=== PATIENT | female | born 1990 | race Hispanic/Latino ===

== ENCOUNTER 2018-08-18 14:23 | Outpatient (CLI) | payer MEDICAID ==
[2018-08-18 15:53] LABS: Hematocrit 30.8 % (30.3-42.9); Hemoglobin 10.3 gm/dl (10.1-14.3); Mean Corpuscular HGB Conc 33 % (30-34); Mean Corpuscular Volume 85 fl (79-97); Platelet Count 372 K/mm3 (140-440); Red Blood Count 3.61 M/mm3 (3.65-5.03); Red Cell Distribution Width 13.7 % (13.2-15.2)
[2018-08-18 16:10] LABS: Bacteria,Urine 1+ /HPF (Negative); Bilirubin,Urine NEG (Negative); Blood,Urine NEG (Negative); Color,Urine Yellow (Yellow); Mucus,Urine FEW /HPF; Urobilinogen,Urine < 2.0 mg/dL (<2.0)
[2018-08-18 17:07] LABS: Alanine Aminotransferase 6 units/L (7-56); Uric Acid 3.7 mg/dL (3.5-7.6)
[2018-08-18 17:15] VITALS: BP 108/73
== END 2018-08-18 17:35 | disposition home or self-care (01) ==
LOC: TRG 14:23
PROVIDERS: ATTEND Obstetrics & Gynecology
DX: O47.03 False labor before 37 completed weeks of gestation, third trimester (principal); O13.3 Gestational [pregnancy-induced] hypertension without significant proteinuria, third trimester; Z3A.36 36 weeks gestation of pregnancy
CPT/HCPCS: 36415; 59025; 81001; 82565; 83615; 84450; 84460; 84550; 85027

== ENCOUNTER 2018-08-22 18:05 | Outpatient (CLI) | payer MEDICAID ==
[2018-08-22] MEDS ORDERED: LACTATED RINGERS 500 ML IV ONE (18:29)
[2018-08-22 19:10] LABS: Hematocrit 33.3 % (30.3-42.9); Hemoglobin 11.2 gm/dl (10.1-14.3); Mean Corpuscular HGB Conc 34 % (30-34); Mean Corpuscular Volume 84 fl (79-97); Platelet Count 424 K/mm3 (140-440); Red Blood Count 3.95 M/mm3 (3.65-5.03); Red Cell Distribution Width 13.8 % (13.2-15.2)
[2018-08-22 19:23] LABS: Bacteria,Urine 1+ /HPF (Negative); Bilirubin,Urine NEG (Negative); Blood,Urine NEG (Negative); Color,Urine Yellow (Yellow); Mucus,Urine FEW /HPF; Protein,Urine <15 mg/dL mg/dL (Negative); Urobilinogen,Urine < 2.0 mg/dL (<2.0)
[2018-08-22 19:36] LABS: Alanine Aminotransferase 6 units/L (7-56); Uric Acid 4.2 mg/dL (3.5-7.6)
[2018-08-22 20:10] VITALS: BP 108/70
== END 2018-08-22 20:24 | disposition home or self-care (01) ==
LOC: TRG 18:05
PROVIDERS: ATTEND Obstetrics & Gynecology
DX: O47.03 False labor before 37 completed weeks of gestation, third trimester (principal); O13.3 Gestational [pregnancy-induced] hypertension without significant proteinuria, third trimester; Z3A.37 37 weeks gestation of pregnancy
CPT/HCPCS: 36415; 81001; 82565; 83615; 84450; 84460; 84550; 85027

== ENCOUNTER 2018-09-04 05:28 | Inpatient (IN) | payer MEDICAID ==
--- NOTE | 2018-09-03 23:38 | History and Physical Report ---
History of Present Illness Date of examination: 09/04/18 History of present illness: Patient admitted for repeat section. Patient informed the risks of the surgery include bleeding possibly bleeding heavy enough to require blood transfusion, infection possible damage to bowel bladder ureter. Patient understands that due to her previous surgery she is an increased risks of adjacent organ damage. Patient's questions answered. Patient understands and desires to proceed. Menstrual History Regularity: regular Menses every: 28 days Duration: 5 LMP: 12/04/2017 LMP reliability: definite LMP character: heavier test type: urine test Date: 03/24/2018 BC at conception: none EDC Calculations LMP: 09/10/2018 EDC Confirmation: 09/10/2018 Gestational Age: 15 5/7 weeks Past History : 2 Para: 1 Mult. Births: 0 Prev : 1 Aborta: 0 Elect. Ab: 0 Spont. Ab: 0 Ectopics: 0 Past Medical History: IBS ? thyroid dysfunction - no meds Past Medical History Abnormal PAP: positive, 2007 Family Hx: father - DM Social Hx: Patient is single No etoh/drugs/smoking Smoking History: Patient has never smoked. Infection History Hx of STD: none HIV Risk Eval: no Hepatitis B Risk Eval: low risk Personal hx. of genital herpes: no Partner hx. of genital herpes: no Rash, Viral, or Febrile illness since last LMP? no Varicella/Chicken Pox Status: Previous Disease Genetic History Congenital Heart Defect: Mom: no Dad: no Ascencion Disease: Mom: no Dad: no Thalassemia Mom: no Dad: no Neural Tube Defect Mom: no Dad: no Down's Syndrome Mom: no Dad: no Mckinley-Sachs Mom: no Dad: no Sickle Cell Disease/Trait Mom: no Dad: no Hemophilia Mom: no Dad: no Muscular Dystrophy Mom: no Dad: no Cystic Fibrosis Mom: no Dad: no Trung Chorea Mom: no Dad: no Mental Retardation Mom: no Dad: no Fragile X Mom: no Dad: no Other Genetic/Chromosomal Disorder Mom: no Dad: no Child w/other defect Mom: no Dad: no Enviromental Exposures Xray Exposure: no Medication, drug, or alcohol use since LMP: no Chemical/Other Exposure: no Exposure to Cat Liter: no Hx of Parvovirus (Fifth Disease): no Occupational Exposure to Children: none Current Allergies (reviewed today): FLAGYL (Critical) Past History Social history: other (See HPI) - Obstetrical History Expected Date of Delivery: 09/10/18 Actual Gestation: 39 Week(s) 1 Day(s) : 2 Para: 1 Hx # Term Pregnancies: 1 Number of Pregnancies: 0 Spontaneous Abortions: 0 Induced : 0 Number of Living Children: 1 Medications and Allergies Allergies Allergy/AdvReac Type Severity Reaction Status Date / Time No Known Allergies Allergy Verified 08/22/18 18:27 Home Medications Medication Instructions Recorded Confirmed Last Taken Type Aspirin [Lo-Dose Aspirin EC] 81 mg PO DAILY 08/18/18 09/04/18 09/03/18 History - Physical Exam Breasts: Positive: deferred Cardiovascular: Regular rate Results Result Diagrams: 09/04/18 05:55 All other labs normal. Assessment and Plan - Patient Problems (1) 39 weeks gestation of Current Visit: No Status: Acute (2) Maternal care for scar from previous delivery Current Visit: No Status: Acute Qualifiers: Previous delivery type: low transverse Qualified Code(s): O34.211 - Maternal care for low transverse scar from previous delivery Plan to address problem: Patient informed the risks of the surgery include bleeding possibly bleeding heavy enough to require blood transfusion, infection possible damage to bowel bladder ureter. All questions answered. Patient agrees to proceed (3) Sterilization Current Visit: No Status: Acute Plan to address problem: Patient desires permanent sterilization. She declined temporary contraceptives. She understands the risks of the surgery include bleeding infection possible damage to bowel bladder or ureters. She understands that this surgery would ma ke her permanently sterile. She also understands the approximate 1% failure rate. The patient understands all the above and desires to proceed.
[2018-09-04] MEDS ORDERED: LACTATED RINGERS 2,000 ML ONE (05:50)
[2018-09-04] MEDS: LACTATED RINGERS 1,000 ML IV SCH ×2 (06:00→06:40)
[2018-09-04] MEDS ORDERED: REGLAN IV ONE (06:13)
[2018-09-04] MEDS ORDERED: PEPCID IV ONE (06:13)
[2018-09-04] MEDS ORDERED: BICITRA PO ONE (06:13)
[2018-09-04 06:39] LABS: Eosinophils % (Auto) 0.7 % (0.0-4.3); Hemoglobin 11.4 gm/dl (10.1-14.3); Lymphocytes % (Auto) 17.4 % (13.4-35.0); Mean Corpuscular HGB Conc 33 % (30-34); Mean Corpuscular Volume 84 fl (79-97); Monocytes % (Auto) 9.3 % (0.0-7.3); Platelet Count 411 K/mm3 (140-440); Red Blood Count 4.03 M/mm3 (3.65-5.03)
[2018-09-04 06:40] LABS: Basophils % (Auto) 0.4 % (0.0-1.8); Eosinophils # (Auto) 0.1 K/mm3 (0.0-0.4)
[2018-09-04] MEDS ORDERED: ANCEF/STERILE WATER 2 GM/20 ML 2 GM/20 ML SYRINGE IV NR (07:00)
[2018-09-04] MEDS ORDERED: PITOCin/NS 20 UNIT/1000ML DRIP 20 UNITS/1,000 ML BAG IV SCH ×2 (07:00→11:59)
--- NOTE | 2018-09-04 07:19 | Anesthesia Day of Surgery ---
Anesthesia Day of Surgery - Day of Surgery Patient Examined: Yes Patient H&P Reviewed: Yes Patient is NPO: Yes Beta Blockers: No Cardiac Clearance: No Pulmonary Clearance: No Justin's Test: N/A
--- NOTE | 2018-09-04 07:20 | Anesthesia Consultation ---
Anesthesia Consult and Med Hx - Airway Anesthetic Teeth Evaluation: Good ROM Head & Neck: Adequate Mental/Hyoid Distance: Adequate Mallampati Class: Class I Intubation Access Assessment: Good - Pulmonary Exam CTA: Yes - Cardiac Exam Cardiac Exam: RRR - Pre-Operative Health Status ASA Pre-Surgery Classification: ASA2 Proposed Anesthetic Plan: Spinal - Pulmonary Hx Smoking: No Hx Asthma: No COPD: No Hx Pneumonia: No - Cardiovascular System Hx Hypertension: No - Central Nervous System Hx Seizures: No Hx Psychiatric Problems: No - Endocrine Hx Renal Disease: No Hx End Stage Renal Disease: No Hx Hypothyroidism: No Hx Hyperthyroidism: No - Hematic Hx Anemia: No Hx Sickle Cell Disease: No - Other Systems Hx Alcohol Use: No
[2018-09-04] MEDS ORDERED: SODIUM CHLORIDE FLUSH SYRINGE 10 ML IV PRN (08:00)
[2018-09-04] MEDS ORDERED: PHENERGAN PO PRN (08:00)
[2018-09-04] MEDS ORDERED: DILAUDID IV PRN (08:00)
[2018-09-04] MEDS ORDERED: NARCAN 0.4 MG/1 ML IV PRN ×2 (08:00→11:59)
[2018-09-04] MEDS ORDERED: PHENERGAN PR PRN (08:00)
[2018-09-04] MEDS ORDERED: ZOFRAN IV PRN (08:00)
[2018-09-04] MEDS ORDERED: ZOFRAN ONE (08:02)
[2018-09-04] MEDS ORDERED: NEO SYNEPHRINE/NS Syringe(OR USE) IV ONE (08:02)
[2018-09-04] MEDS ORDERED: ASTRAMORPH PF 10MG/10ML ONE (08:02)
[2018-09-04] MEDS ORDERED: ANCEF/STERILE WATER 2 GM/20 ML IV ONE (08:15)
[2018-09-04] MEDS ORDERED: LACTATED RINGERS 1,000 ML ONE (08:19)
[2018-09-04] MEDS ORDERED: WATER FOR IRRIG STERILE IR ONE (08:32)
[2018-09-04] MEDS ORDERED: NACL 0.9% IR ONE (08:32)
[2018-09-04] MEDS ORDERED: TORADOL ONE (09:00)
--- NOTE | 2018-09-04 09:16 | Operative Report ---
Operative Report Operative Report: Date of procedure: 09/04/2018 Pre-operative diagnosis: Intrauterine at 39 weeks with previous constantine keven section desiring permanent sterilization Post-operative diagnosis: Same Procedure name(s): Repeat low transverse section with bilateral tubal ligation modified Erickson type Surgeon: Des Pop MD Bar Tender: Iveth Hurt assistant golf professional Anesthesia: Spinal EBL: 550 mL Complications: None Findings: Patient with normal uterus tubes and ovaries bilaterally. Female infant 8 lbs. 3 oz. 9 at 1 minute and 9 at 5 minutes Specimen(s): Portion of the right and left fallopian tubes Procedure: The patient was brought to the operating room. A spinal was placed without any complications. She was then placed in left lateral tilt. Prepped and draped in the usual sterile manner. After testing for adequate anesthesia level, a Pfannenstiel incision was made through her previous scar. This incision was taken down to the fascia. The fascia was then nicked in the midline. This incision was extended out laterally with Munoz scissors. The fascia was then sharply and bluntly from the underlying rectus muscles. The rectus muscles were bluntly and sharply . The peritoneum was then entered with the chucking machine operator's fingers. This incision was spread vertically with care not to damage the bladder below. The bladder flap was then formed sharply and bluntly with Metzenbaum scissors. The Wilmar self-retaining tractor was then placed without any difficulty. A transverse incision was made in lower uterine segment. This incision was extended laterally with the operators fingers. The amniotic sac was then entered bluntly with the oper ator's fingers. The infant was delivered from the vertex position. Bulb suction on the mother's abdomen. Cord was double clamped and cut. The was then passed to the nursery personnel who were in attendance. The above scores were given by the nursery personnel. The placenta was then bluntly removed. The uterus was then externalized and wiped clean the remaining products. The uterine incision was closed in layers. The first incision was closed in a locking manner using 0 Vicryl. This was followed by imbricating stitch also with 0 Vicryl. Attention was then switched to the patient's fallopian tubes. Each fallopian tube was identified by its fimbriated end. A portion of each tube was grabbed with the Mona clamp approximately 2-3 cm from the cornua. Each loop was double ligated with 0 plain suture. The loop were cut with Metzenbaum scissors. Each stump was found to be hemostatic and cauterized with the Bovie. Attention was then switched back to the uterine c losure. This closure was hemostatic after additional [id number] suture. The bladder flap was copiously irrigated and found to be hemostatic. The pelvis was copiously irrigated and found to be hemostatic. The uterus was then placed back to the patient's abdomen. The retractors were removed. The rectus muscles were inspected and found to be hemostatic. The fascia was then closed in a running manner using 0 Vicryl. This incision was hemostatic irrigation Bovie. The skin was reapproximated with 4-0 Vicryl subcuticularly. The patient tolerated procedure well. Her urine was clear. The infant was admitted to the well baby nursery. The patient was accompanied to recovery room in good condition. Instrument count correct X 3.
--- NOTE | 2018-09-04 11:39 | Post Anesthesia Evaluation ---
- Post Anesthesia Evaluation Patient Participated: Yes Airway Patent: Yes Stable Respiratory Function: Yes Nausea/Vomiting: No Temp > 96.8F: Yes Pain Manageable: Yes Adequeate Hydration: Yes Anesthesia Complications: No Block Receding Appropriately: Yes Patient on Ventilator: No
[2018-09-04] MEDS ORDERED: NORCO 5/325 PO PRN (11:59)
[2018-09-04] MEDS ORDERED: ANUCORT-HC PR PRN (11:59)
[2018-09-04] MEDS ORDERED: LANSINOH TP PRN (11:59)
[2018-09-04] MEDS ORDERED: TUCKS PAD TP PRN (11:59)
[2018-09-04] MEDS ORDERED: SODIUM CHLORIDE FLUSH SYRINGE 10 ML IV SCH (11:59)
[2018-09-04] MEDS ORDERED: MYLICON PO PRN (11:59)
[2018-09-04] MEDS ORDERED: MILK OF MAGNESIA PO PRN (11:59)
[2018-09-04] MEDS ORDERED: D5LR 1,000 ML IV SCH (13:00)
[2018-09-04] MEDS: ANCEF/NS 1 GM/50 ML 1 GM/50 ML BAG IV SCH ×2 (16:16→23:33)
[2018-09-04] MEDS: TORADOL IV SCH ×2 (16:16→21:54)
[2018-09-04 21:39] LABS: Hematocrit 31.4 % (30.3-42.9); Hemoglobin 10.1 gm/dl (10.1-14.3)
[2018-09-05] MEDS: TORADOL IV SCH ×2 (04:13→10:05)
--- NOTE | 2018-09-05 08:16 | Progress Note ---
Assessment and Plan patient doing well, no complaints. Dressing dry and intact - rn to remove after shower this afternoon. VSSAF, H&H 10.1/31.4, lochia scant, fundus firm, + Flatus. Pt with good latch. Continue postop pathway, encouraged advance activity as tolerated. - Patient Problems (1) delivery delivered Current Visit: Yes Status: Acute Subjective - Subjective Date of service: 09/05/18 Principal diagnosis: postop day #1 s/p repeat c/s Patient reports: appetite normal, voiding normally, pain well controlled, flatus, ambulating normally, no dizzy ambulation, no nauseated : doing well, nursing well Objective - Vital Signs Latest vital signs: Vital Signs Temp Pulse Resp BP BP Pulse Ox 09/05/18 04:54 98.5 F 85 20 96/65 96 09/05/18 00:47 98.4 F 89 18 109/73 96 09/04/18 20:55 98.5 F 100 H 18 105/74 96 09/04/18 16:04 98.8 F 102 H 20 123/81 93 09/04/18 11:36 97.4 F L 83 20 129/87 96 09/04/18 10:37 97.7 F 82 18 115/80 97 09/04/18 10:15 77 16 126/84 09/04/18 10:10 98.1 F 74 16 124/80 98 09/04/18 10:00 76 18 116/78 98 09/04/18 09:45 77 18 114/72 98 09/04/18 09:30 81 18 111/71 98 09/04/18 09:25 79 18 112/67 98 09/04/18 09:20 78 18 104/65 98 09/04/18 09:17 97.8 F 85 18 97/61 98 Intake and Output 09/04/18 09/05/18 09/05/18 23:59 07:59 15:59 Intake Total 530 480 Output Total 1500 700 Balance -970 -220 Intake: IV 50 ANCEF/NS 1 GM/50 ML 1 gm 50 In 50 ml @ 100 mls/hr IV Q8H [facility] Rx#:[id number] Oral 480 480 Output: Urine 1500 700 Indwelling Catheter 1500 Void 700 Other: Total, Intake Amount 480 240 Total, Output Amount 1000 400 # Voids Void 1 - Exam Breasts: Present: normal, Cardiovascular: Present: Regular rate Lungs: Present: Clear to auscultation, Normal air movement Abdomen: Present: normal appearance, soft Uterus: Present: normal, firm, fundal height at umbilicus Extremities: Present: normal Deep Tendon Reflex Grade: Normal +2 Incision: Present: normal, dry, dressed
[2018-09-05] MEDS: PRENATAL VITAMIN PO SCH (10:05)
[2018-09-05] MEDS: IBUPROFEN PO PRN ×2 (10:05→18:31)
[2018-09-06] MEDS: IBUPROFEN PO PRN ×2 (01:41→10:45)
--- NOTE | 2018-09-06 08:31 | Discharge Summary ---
Providers - Providers Date of Admission: 09/04/18 05:28 Date of discharge: 09/06/18 (patient desires discharge today) Attending physician: DANG MARQUEZ 09/04/18 11:[address] Light Mechanic [CONS] Routine Reason For Exam: Primary care physician: DANG MARQUEZ Hospitalization Reason for admission: scheduled c/s Condition: Good Pertinent studies: post delivery H&H 10.1/31.4 Procedures: repeat c/s Hospital course: uneventful c/s and course Disposition: - TO HOME OR SELFCARE Core Measure Documentation - Palliative Care Palliative Care/ Comfort Measures: Not Applicable - Core Measures Any of the following diagnoses?: none Exam - Constitutional Vitals: Temp Pulse Resp BP Pulse Ox 97.7 F 89 20 129/87 94 09/06/18 01:28 09/06/18 01:09/06/18 01:28 09/06/18 01:09/06/18 01:28 General appearance: Present: no acute distress, well-nourished - EENT Eyes: Present: PERRL ENT: hearing intact, clear oral mucosa - Neck Neck: Present: supple, normal ROM - Respiratory Respiratory effort: normal Respiratory: bilateral: CTA - Cardiovascular Heart Sounds: Present: S1 & S2. Absent: rub, click - Extremities Extremities: pulses symmetrical, No edema Peripheral Pulses: within normal limits - Abdominal General gastrointestinal: Present: soft, non-tender, non-distended, normal bowel sounds Female genitourinary: Present: normal - Integumentary Integumentary: Present: clear, warm, dry - Musculoskeletal Musculoskeletal: gait normal, strength equal bilaterally - Psychiatric Psychiatric: appropriate mood/affect, intact judgment & insight - Neurologic Neurologic: CNII-XII intact, moves all extremities - Additional findings Additional findings: fundus firm, ML, U/1, scant bleeding. Incision is well approximated and healing well, no bleeding or signs of infection. Breast feeding is going well. Pain is well controlled with medications. VSSAF Plan Activity: no restrictions Diet: regular Wound: open to air, keep clean and dry Follow up with: DANG MARQUEZ MD [Primary Care Provider] - 7 Days (Congratulations! Please call [phone] to schedule your 1 week incision check. Please call with any questions or concerns. ) Prescriptions: Ferrous Sulfate [Feosol 325 MG tab] 325 mg PO BID #60 tablet Ibuprofen [Motrin 800 MG tab] 800 mg PO Q6H PRN #30 tablet PRN Reason: Pain oxyCODONE /ACETAMINOPHEN [Percocet 5/325 mg] 1 - 2 tab PO Q4H PRN #30 tablet PRN Reason: Pain, Moderate
[2018-09-06] MEDS ORDERED: M-M-R II VACCINE SUB-Q ONE (10:28)
[2018-09-06] MEDS: PRENATAL VITAMIN PO SCH (10:45)
[2018-09-06 12:37] VITALS: BP 98/62
== END 2018-09-06 13:00 | disposition home or self-care (01) | DRG 766 ==
LOC: APU 05:28 → OB 10:28
PROVIDERS: ADMIT Obstetrics & Gynecology; ATTEND Obstetrics & Gynecology
PROC: 10D00Z1 Extraction of Products of Conception, Low, Open Approach (ICD-10-PCS; principal; 2018-09-04)
PROC: 0UB70ZZ Excision of Bilateral Fallopian Tubes, Open Approach (ICD-10-PCS; 2018-09-04)
PROC: 3E0334Z Introduction of Serum, Toxoid and Vaccine into Peripheral Vein, Percutaneous Approach (ICD-10-PCS; 2018-09-04)
PROC: 3E0234Z Introduction of Serum, Toxoid and Vaccine into Muscle, Percutaneous Approach (ICD-10-PCS; 2018-09-06)
DX: O34.211 Maternal care for low transverse scar from previous cesarean delivery (principal); Z3A.39 39 weeks gestation of pregnancy; Z37.0 Single live birth; Z83.3 Family history of diabetes mellitus; Z23 Encounter for immunization
CPT/HCPCS: 36415; 85014; 85018; 85025; 85461; 86592; 86850; 86900; 86901; 88302; 96360; 96374; 96375; G0378; A6250; J0690; J1885; J2274; J2370; J2405; J2590; J2765; J2790; J7120; J7121